=== PATIENT | male | born 1990 | race Caucasian/White ===

== ENCOUNTER 2016-07-10 18:36 | Emergency (ER) | payer OTHER ==
[~2016-07-10 18:36] MED LIST: NORVASC10 MG PO
[2016-07-10 22:12] LABS: HEMOGLOBIN 15.1 gm/dl (14.0-17.5); RED BLOOD COUNT 5.35 M/UL (4.20-5.50); WHITE BLOOD COUNT 13.1 K/UL (4.5-11.0)
[2016-07-10 22:33] LABS: BUN/CREATININE RATIO 17 (0-10)
== END 2016-07-11 00:30 | disposition home or self-care (01) ==
LOC: ER1 18:36
PROVIDERS: Emergency Medicine
DX: R42 Dizziness and giddiness (principal); I16.0 Hypertensive urgency; I10 Essential (primary) hypertension; Z88.5 Allergy status to narcotic agent; Z91.14 Patient's other noncompliance with medication regimen
CPT/HCPCS: 36415; 70450; 80053; 82550; 82553; 83874; 84484; 85025; 99284

== ENCOUNTER 2016-07-24 13:19 | Emergency (ER) | payer OTHER ==
[2016-07-24 14:24] LABS: HEMOGLOBIN 15.7 gm/dl (14.0-17.5); RED BLOOD COUNT 5.59 M/UL (4.20-5.50); WHITE BLOOD COUNT 12.9 K/UL (4.5-11.0)
[2016-07-24 14:51] LABS: BUN/CREATININE RATIO 9 (0-10)
== END 2016-07-24 20:15 | disposition home or self-care (01) ==
LOC: ER1 13:19
PROVIDERS: Student in an Organized Health Care Education/Training Program
DX: I10 Essential (primary) hypertension (principal); K62.5 Hemorrhage of anus and rectum; D17.1 Benign lipomatous neoplasm of skin and subcutaneous tissue of trunk; K02.9 Dental caries, unspecified; F17.210 Nicotine dependence, cigarettes, uncomplicated; Z88.5 Allergy status to narcotic agent; Z79.899 Other long term (current) drug therapy
CPT/HCPCS: 36415; 71020; 80053; 81001; 82272; 82550; 82553; 83874; 84484; 85025; 87086; 93005; 99284

== ENCOUNTER 2016-08-02 13:15 | Emergency (ER) | payer OTHER | END 2016-08-02 15:30 | disposition home or self-care (01) | LOC: ER1 13:15 | DX: R20.8 Other disturbances of skin sensation (principal); I10 Essential (primary) hypertension; F17.200 Nicotine dependence, unspecified, uncomplicated; Z88.5 Allergy status to narcotic agent | CPT/HCPCS: 70450; 99283 ==

== ENCOUNTER 2020-08-29 22:29 | Emergency (ER) | payer OTHER ==
[~2020-08-29 22:29] MED LIST changes: +ASPIRIN81 MG PO; +BENTYL 20MG TAB20 MG PO; +NAPROSYN500 MG PO; +NITROSTAT0.4 MG SL; +ZITHROMAX250 MG PO; +ZOFRAN4 MG PO
[2020-08-30 02:18] LABS: HEMOGLOBIN 13.7 gm/dl (14.0-17.5); RED BLOOD COUNT 5.03 M/UL (4.20-5.50); WHITE BLOOD COUNT 14.4 K/UL (4.5-11.0)
[2020-08-30 02:32] LABS: BUN/CREATININE RATIO 21 (0-10)
== END 2020-08-30 04:55 | disposition home or self-care (01) ==
LOC: ER1 22:29
PROVIDERS: Family Medicine
DX: K62.5 Hemorrhage of anus and rectum (principal); Z88.5 Allergy status to narcotic agent
CPT/HCPCS: 80053; 82272; 85025; 85610; 99284